=== PATIENT | male | born 1965 | race Asian ===

== ENCOUNTER → 2023-12-19 07:42 | Outpatient (CLI) | payer OTHER, SELFPAY ==
--- NOTE | 2023-12-19 | DI.NM.S_ITS ---
PROCEDURE: NM EXERCISE TREADMILL NON NUC COMPARISON: None. INDICATIONS: DYSPNEA FINDINGS: the patient exercised for 6 minutes and 42 seconds reaching 86% of maximum predicted heart rate. Appropriate BP response to exercise. Mildly reduced exercise tolerance (7.0 METs, CALLUM +16%). No diagnostic ST changes and no angina during exercise or recovery. Frequent PVCs during exercise. IMPRESSION: Low risk, normal treadmill ECG only stress test from inducible ischemia standpoint. Mildly reduced exercise tolerance (7.0 METs, CALLUM +16%). Frequent PVCs during exercise. Dictated by: David Muro MD on 12/20/2023 at 15:58 Approved by: David Muro MD on 12/20/2023 at 16:01
== END ==
PROVIDERS: Referring Provider Family Medicine; Visit Provider Family Medicine
DX: R06.00 Dyspnea, unspecified (principal)
CPT/HCPCS: 93016; 93017; 93018